=== PATIENT | male | born 1965 | race Caucasian/White ===

== ENCOUNTER 2017-07-01 05:19 | Inpatient (IN) | payer BC ==
[~2017-07-01] VITALS: Ht 180.3 cm; Wt 79.0 kg
[2017-07-01 05:58] LABS: PTT 29.6 SEC (25-37)
[2017-07-01 06:02] LABS: CHLORIDE 105 mEq/L (99-109); POTASSIUM 3.9 mEq/L (3.7-5.4); SODIUM 139 mEq/L (136-147)
[2017-07-01 06:04] LABS: GLUCOSE 147 mg/dL (70-99)
[2017-07-01 06:08] LABS: CREATININE 1.1 mg/dL (0.6-1.3); GFR ESTIMATE (CALCULATED) > 59 mL/min/ (58.99-99999); HEMATOCRIT 42.4 % (38.0-50.0); HEMOGLOBIN 14.6 G/DL (12.5-16.6); MCH 28.3 PG (29.0-34.0); MCHC 34.4 G/DL (30.0-36.0); MCV 82.3 FL (86-99); PLATELET COUNT 260 K/uL (156-360); RBC DIS.WIDTH-CV 12.6 % (11.8-14.6); RBC DIS.WIDTH-SD 38.1 % (39-53); RED BLOOD COUNT 5.15 M/uL (4.00-5.50); WHITE BLOOD COUNT 6.2 K/uL (4.1-10.2)
[2017-07-01 06:09] LABS: UREA NITROGEN (BUN) 20 mg/dL (9-23)
[2017-07-01 06:12] LABS: TROP-I INTERPRETATION NEGATIVE; TROPONIN-I < 0.01 ng/mL (0.0-0.30)
[2017-07-01] MEDS ORDERED: FENOFIBRATE145 M1 PO (07:33)
[2017-07-01] MEDS ORDERED: SIMVASTATIN5 MG PO (07:34)
[2017-07-01] MEDS ORDERED: BLOOD PRESSURE PILL PO (07:35)
[2017-07-01 09:11] LABS: ALBUMIN 4.5 g/dL (3.2-4.8)
[2017-07-01 09:14] LABS: TOTAL PROTEIN 7.7 g/dL (6.4-8.3)
[2017-07-01 09:16] LABS: TOTAL BILIRUBIN 0.4 mg/dL (0.0-1.0)
[2017-07-01 09:17] LABS: ALKALINE PHOSPHATASE 53 IU/L (3-129)
[2017-07-01 09:20] LABS: ALT (GPT) 18 IU/L (3-49); AST (GOT) 21 IU/L (2-34)
[2017-07-01 09:56] LABS: ERTH.SED.RATE 16 MM/HR (0-20)
[2017-07-01 10:32] LABS: HDL CHOLESTEROL 40 MG/DL (Desirable>=40); LDL CHOLESTEROL 104 mg/dL (Desirable<100); NON-HDL CHOLESTEROL 152 mg/dL (Desirable<160); TOTAL CHOLESTEROL 192 mg/dL (Desirable<200); TRIGLYCERIDES 239 MG/DL (Normal: <150)
[2017-07-01 11:23] VITALS: BP 143/77
[2017-07-01 11:47] LABS: APPEARANCE CLEAR ((CLEAR)); BILIRUBIN NEGATIVE; BLOOD NEGATIVE; COLOR STRAW ((YELLOW)); GLUCOSE (STRIP) 50; KETONES NEGATIVE; LEUKOCYTES NEGATIVE; NITRITE NEGATIVE; PROTEIN (STRIP) NEGATIVE; SPECIFIC GRAVITY 1.027 (1.000-1.030); UCUL ADDED? NO; UROBILINOGEN 0.2 MG/DL (0.2-1.0)
[2017-07-01 13:56] LABS: HEMOGLOBIN A1c (GLYCOHEMOGLOB) 6.5 % (Below 5.7)
[2017-07-01 16:14] VITALS: BP 140/77
[2017-07-01 19:26] VITALS: BP 161/83
[2017-07-01 23:55] VITALS: BP 140/80
[2017-07-02 03:14] VITALS: BP 144/81
[2017-07-02 07:56] VITALS: BP 147/73
[2017-07-02 11:49] VITALS: BP 141/78
[2017-07-02] MEDS ORDERED: ATORVASTATIN CA40 MG PO (17:04)
[2017-07-02] MEDS ORDERED: LOPRESSOR25 MG PO (17:04)
== END 2017-07-02 17:43 | disposition home or self-care (01) | DRG 66 ==
LOC: EME 05:19 → EDOF 07:32 → ENRESERV 07:40 → 5SOUTH 08:06 → EDOF 08:06 → ENRESERV 08:10 → 5SOUTH 11:04
PROVIDERS: Emergency Medicine
DX: I63.9 Cerebral infarction, unspecified (principal); I16.0 Hypertensive urgency; E78.5 Hyperlipidemia, unspecified; I10 Essential (primary) hypertension; Z91.14 Patient's other noncompliance with medication regimen; E78.1 Pure hyperglyceridemia; L30.9 Dermatitis, unspecified; E78.00 Pure hypercholesterolemia, unspecified; E11.9 Type 2 diabetes mellitus without complications
CPT/HCPCS: 70450; 70496; 70498; 70551; 71045; 80047; 80048; 80053; 80061; 81003; 83036; 84484; 85027; 85610; 85652; 85730; 93005; 93306; 99281; 99285; J0360; J1650; J2405; J7040